=== PATIENT | female | born 1945 | race Caucasian/White ===

== ENCOUNTER 2023-04-19 14:08 | Emergency (ER) | payer MEDICARE, SELFPAY ==
[2023-04-19 14:28] VITALS: BP 177/76; PULSE 67; RESP 18; TEMP 36.3; O2SAT 98
--- NOTE | 2023-04-19 14:42 | ED.FEMALEGU ---
HPI - Female Genitourinary General Chief complaint: Urogenital-Female Stated complaint: uti symptoms Time Seen by Provider: 04/19/23 14:42 Source: patient Mode of arrival: ambulatory Limitations: no limitations History of Present Illness HPI Narrative: 77-year-old female presents with complaint of urinary frequency, urgency, low back aching for the past week. Afebrile. Is concerned that she has a urinary tract infection. States she has only had 1 UTI prior to this over a year ago. Patient is leaving for out of town and wants an antibiotic prior to going. Denies nausea vomiting diarrhea. No abdominal discomfort. All systems reviewed and negative except as noted above. Related Data Home Medications Medication Instructions Recorded Confirmed aspirin 81 mg capsule 81 mg PO DAILY 04/19/23 04/19/23 atenolol 50 mg tablet 50 mg PO DAILY 04/19/23 04/19/23 escitalopram oxalate 10 mg tablet 10 mg PO DAILY 04/19/23 04/19/23 lisinopril 40 mg tablet 40 mg PO DAILY 04/19/23 04/19/23 lovastatin 20 mg tablet 20 mg PO DAILY 04/19/23 04/19/23 trazodone 50 mg tablet 50 mg PO DAILY 04/19/23 04/19/23 Allergies Allergy/AdvReac Type Severity Reaction Status Date / Time No Known Allergies Allergy Verified 04/19/23 14:45 Review of Systems Review of Systems: CONSTITUTIONAL: Denies fever, chills, or sweats. EYES: Denies visual changes, redness, or discharge. ENT: Denies rhinorrhea, congestion, sore throat, or otalgia. CARDIOVASCULAR: Denies chest pain, palpitations, or edema. RESPIRATORY: Denies cough or dyspnea. GASTROINTESTINAL: Denies abdominal pain, nausea, vomiting, or diarrhea. GENITOURINARY: Denies dysuria . reports urinary frequency, urgency, low back pain. SKIN: Denies rash or itching. MUSCULOSKELETAL: Denies back pain, joint pain, or myalgia. NEUROLOGIC: Denies headache, numbness, or weakness. PSYCHIATRIC: Denies anxiety or depression. All other systems reviewed are negative, except as documented in HPI. PMFSH Comments At time of signature, agree with nursing past medical, surgical, social and family history. There is no relevant family history pertinent to the presenting complaint. Exam Narrative: GENERAL: This is a well-nourished, well-developed patient, in no apparent distress. HEAD: normocephalic, atraumatic. EYES: PERRL. Sclera clear/white. Vision is grossly intact. EARS: External ears normal NOSE: External nose normal NECK: Neck supple, non-tender without lymphadenopathy, masses or thyromegaly. CARDIOVASCULAR: Regular rate and rhythm without murmurs, gallops, or rubs. RESPIRATORY: Clear to auscultation. Breath sounds equal bilaterally. No wheezes, rales, or rhonchi. SKIN: warm, Dry, intact with no suspicious lesions or rash, good texture and turgor. NEURO: awake, alert, and oriented to person, place and time. There were no obvious focal neurologic abnormalities. EXTREMITIES: No joint tenderness, effusion, or edema noted. BACK: No CVA tenderness. Course Course Level of Care: Express Care Visit Vital Signs Vital signs: Vital Signs Temperature 36.3 C L 04/19/23 14:28 Pulse Rate 67 04/19/23 14:28 Respiratory Rate 18 04/19/23 14:28 Blood Pressure 177/76 H 04/19/23 14:28 Pulse Oximetry 98 04/19/23 14:28 Oxygen Delivery Room Air 04/19/23 14:28 Temperature 36.3 C L 04/19/23 14:28 Pulse Rate 67 04/19/23 14:28 Respiratory Rate 18 04/19/23 14:28 Blood Pressure 177/76 H 04/19/23 14:28 Pulse Oximetry 98 04/19/23 14:28 Oxygen Delivery Room Air 04/19/23 14:28 reviewed MDM - Female Genitourinary MDM Narrative Medical decision making narrative: Patient is aware of diagnosis, understands and agrees to treatment plan. Anticipatory guidance given. Patient agrees to follow-up as directed and is aware of reasons to seek care at the emergency department. Portions of this record may have been created with voice recognition software Differential Diagnosis D
== END 2023-04-19 14:56 | disposition home or self-care (01) ==
PROVIDERS: Emergency Provider Nurse Practitioner Family; PCP Internal Medicine
DX: N39.0 Urinary tract infection, site not specified (principal); E78.00 Pure hypercholesterolemia, unspecified; I10 Essential (primary) hypertension; F41.9 Anxiety disorder, unspecified
CPT/HCPCS: 81003; 87077; 87086; 87186; 99213; G0463

== ENCOUNTER 2023-06-14 09:36 | Emergency (ER) | payer MEDICARE, SELFPAY ==
[2023-06-14 09:53] VITALS: BP 122/66; PULSE 62; RESP 18; TEMP 36.4; O2SAT 97
--- NOTE | 2023-06-14 10:13 | ED.FEMALEGU ---
HPI - Female Genitourinary General Chief complaint: Urogenital-Female Stated complaint: uti symptoms Time Seen by Provider: 06/14/23 10:08 Source: patient and RN notes reviewed Mode of arrival: ambulatory Limitations: no limitations History of Present Illness HPI Narrative: Patient presents today complaining of a 2-3 week history of urinary frequency and fatigue. Denies any additional symptoms to include dysuria, hematuria, abdominal discomfort. She has tried no [id number] treatment prior to arrival. Related Data Home Medications Medication Instructions Recorded Confirmed aspirin 81 mg capsule 81 mg PO DAILY 04/19/23 06/14/23 atenolol 50 mg tablet 50 mg PO DAILY 04/19/23 06/14/23 escitalopram oxalate 10 mg tablet 10 mg PO DAILY 04/19/23 06/14/23 lisinopril 40 mg tablet 40 mg PO DAILY 04/19/23 06/14/23 lovastatin 20 mg tablet 20 mg PO DAILY 04/19/23 06/14/23 trazodone 50 mg tablet 50 mg PO DAILY 04/19/23 06/14/23 Allergies Allergy/AdvReac Type Severity Reaction Status Date / Time No Known Allergies Allergy Verified 06/14/23 09:59 Review of Systems Review of Systems: CONSTITUTIONAL: Denies body aches, fever, chills, or sweats.+ fatigue EYES: Denies visual changes, redness, or discharge. ENT: Denies rhinorrhea, congestion, sore throat, or otalgia. CARDIOVASCULAR: Denies chest pain, palpitations, or edema. RESPIRATORY: Denies cough or dyspnea. GASTROINTESTINAL: Denies abdominal pain, nausea, vomiting, or diarrhea. GENITOURINARY: Denies dysuria or hematuria.+ frequency SKIN: Denies rash, itching, or wounds. MUSCULOSKELETAL: Denies back pain, joint pain, or myalgia. NEUROLOGIC: Denies headache, numbness, tingling, or weakness. PSYCH: Denies depression or anxiety. [facility] Past Medical History Medical History (Updated 06/14/23 @ 10:16 by Sarah Larsen, [employer], ) Depression High cholesterol Hypertension Comments At time of signature, I have reviewed and agree with nursing past medical, surgical, social and family history unless otherwise noted. Please see nursing chart for further information. There is no relevant family history pertinent to the presenting complaint Exam Narrative: GENERAL: Well-appearing, well-nourished, and in no acute distress. HEAD: Normocephalic, atraumatic. EYES: EOMI. No redness or drainage. Conjunctivae normal. ENT: Mucous membranes pink and moist. NECK: Normal AROM. CHEST: No respiratory distress. EXTREMITIES: Normal range of motion. No edema. SKIN: Warm, dry, no rash. Capillary refill normal. NEURO: No focal deficits. Alert and oriented x3. Gait steady. PSYCH: Normal affect. No signs of depression or anxiety. Course Course Level of Care: Express Care Visit Vital Signs Vital signs: Vital Signs Temperature 97.5 F L 06/14/23 09:53 Pulse Rate 62 06/14/23 09:53 Respiratory Rate 18 06/14/23 09:53 Blood Pressure 122/66 06/14/23 09:53 Pulse Oximetry 97 06/14/23 09:53 Oxygen Delivery Room Air 06/14/23 09:53 Temperature 97.5 F L 06/14/23 09:53 Pulse Rate 62 06/14/23 09:53 Respiratory Rate 18 06/14/23 09:53 Blood Pressure 122/66 06/14/23 09:53 Pulse Oximetry 97 06/14/23 09:53 Oxygen Delivery Room Air 06/14/23 09:53 Reviewed. Pt has been instructed to follow up with her PCP regarding her elevated blood pressure today. MDM - Female Genitourinary MDM Narrative Medical decision making narrative: Urinalysis is not consistent with infection today. Discussed with patient about sending UA to lab for culture due to symptoms. Patient agrees with plan. No prescription medications indicated at this time. Anticipatory guidance given. Differential Diagnosis Differential diagnosis: Likely urinary tract infection, cystitis and other (Overactive bladder) Lab Data Attestation: I reviewed the patient's lab results. Labs: Urine Glucose Negative Reference Ran
== END 2023-06-14 10:15 | disposition home or self-care (01) ==
PROVIDERS: Emergency Provider Nurse Practitioner; PCP Internal Medicine
DX: R35.0 Frequency of micturition (principal); E78.00 Pure hypercholesterolemia, unspecified; I10 Essential (primary) hypertension; F32.A Depression, unspecified; Z79.82 Long term (current) use of aspirin
CPT/HCPCS: 81003; 87086; 87088; 99213; G0463

== ENCOUNTER 2024-02-06 10:14 | Emergency (ER) | payer MEDICARE, SELFPAY ==
[2024-02-06 10:17] VITALS: BP 200/71; PULSE 74; RESP 16; TEMP 36.5; O2SAT 100
--- NOTE | 2024-02-06 10:53 | ECG_ITS ---
SEE SCANNED COPY FOR CONFIRMED REPORT MTDD
--- NOTE | 2024-02-06 10:55 | ED.GENADULT ---
HPI - General Adult General Chief complaint: Recheck/Abnormal Lab/Rx Stated complaint: high blood pressure Time Seen by Provider: 02/06/24 10:22 History of Present Illness HPI narrative: 78-year-old female with history of hypertension presenting to the emergency department for evaluation of elevated blood pressure. Patient states a few weeks ago she was started on hydrochlorothiazide and that when she was taking medication her blood pressures ranged from 160s to 170s systolic. Patient had a recent vacation and stop taking the hydrochlorothiazide while she was on vacation due to concern elevated labs that she saw on her medical record. Patient returned from vacation on Sunday and did restart her hydrochlorothiazide. Patient does take atenolol and lisinopril at nighttime but did take her hydrochlorothiazide this morning. Prior to arrival patient states her blood pressure was 200 systolic. Patient denies any chest pain shortness of breath nausea vomiting headache lightheadedness numbness or weakness. Related Data Home Medications Medication Instructions Recorded Confirmed aspirin 81 mg capsule 81 mg PO DAILY 04/19/23 06/14/23 atenolol 50 mg tablet 50 mg PO DAILY 04/19/23 06/14/23 escitalopram oxalate 10 mg tablet 10 mg PO DAILY 04/19/23 06/14/23 lisinopril 40 mg tablet 40 mg PO DAILY 04/19/23 06/14/23 lovastatin 20 mg tablet 20 mg PO DAILY 04/19/23 06/14/23 trazodone 50 mg tablet 50 mg PO DAILY 04/19/23 06/14/23 hydrochlorothiazide 12.5 mg tablet mg 02/06/24 oxybutynin chloride 10 mg mg PO 02/06/24 tablet,extended release 24 hr Allergies Allergy/AdvReac Type Severity Reaction Status Date / Time No Known Allergies Allergy Verified 02/06/24 10:21 Review of Systems Review of Systems: All systems reviewed & are unremarkable except as noted in HPI and below PMFSH Past Medical History Medical History (Updated 02/06/24 @ 11:52 by Heraclio Yepez MD) Depression High cholesterol Hypertension Exam Narrative: APPEARANCE: Well appearing, no pain, no distress, well-nourished. HEAD: normocephalic, atraumatic. EYES: PERRLA/EOMI, conjunctivae clear. NOSE: Normal no drainage EARS:TMS clear with good light reflex. THROAT: Pharynx clear, no exudate. NECK: Supple. No adenopathy, no masses. RESPIRATORY: Airway patent, respirations nonlabored. Clear to auscultation bilaterally, no rales, rhonchi, wheezing. CARDIOVASCULAR: Regular rate and rhythm without murmurs rubs or gallops. ABDOMINAL: Soft, nontender, nondistended, normal bowel sounds MUSCULOSKELETAL: Moves all extremities. Strength/ROM intact, No edema, No calf tenderness. NEURO: Alert. Cranial nerves II through XII intact. Grossly intact SKIN: Warm, dry. Normal Color Course Course Emergency Course: Patient's blood pressure improved and patient was discharged to home Vital Signs Vital signs: Vital Signs Temperature 97.7 F 02/06/24 10:17 Pulse Rate 74 02/06/24 10:17 Respiratory Rate 16 02/06/24 10:17 Blood Pressure 200/71 H 02/06/24 10:17 Pulse Oximetry 100 02/06/24 10:17 Oxygen Delivery Room Air 02/06/24 10:17 Temperature 97.7 F 02/06/24 10:17 Pulse Rate 56 L 02/06/24 12:10 Respiratory Rate 18 02/06/24 12:10 Blood Pressure 149/77 H 02/06/24 12:10 Pulse Oximetry 100 02/06/24 12:10 Oxygen Delivery Room Air 02/06/24 10:17 Medical Decision Making MDM Narrative Medical decision making narrative: 78-year-old female presented to the ED for evaluation hypertension. Patient's blood pressure was running approximately 200 systolic at home. Upon arrival emergency department patient's blood pressure is improved and is at the 150-170 systolic blood pressure range. Patient states this is his closer to her baseline and patient is currently asymptomatic. Without any additional medications patient's blood pressures have been in the 140-150 systolic range. Patient was afebrile with no leukocytosis and a stable hemoglobin a
[2024-02-06 11:09] LABS: Basophils Percent Auto 0.4 % (0.2-1.2); Eosinophils Absolute Auto 0.2 K/mm3 (0-0.3); Eosinophils Percent Auto 2.4 % (0-4.4); Hematocrit 49.7 % (37.0-47.0); Hemoglobin 15.7 g/dL (12.0-15.0); Immature Granulocyte Absolute 0.01 K/mm3 (0.00-0.031); Immature Granulocyte Percent A 0.1 % (0-0.5); Lymphocytes Absolute Auto 3.05 K/mm3 (0.9-3.2); Lymphocytes Percent Auto 38.1 % (18.3-44.2); Mean Corpuscular HGB Conc 31.6 g/dl (32-36); Mean Corpuscular Hemoglobin 28.9 pg (26-34); Mean Corpuscular Volume 91.4 fl (80-100); Mean Platelet Volume 9.8 fl (7.4-10.4); Monocytes Absolute Auto 0.8 K/mm3 (0.1-0.6); Monocytes Percent Auto 10.2 % (2.6-8.5); Neutrophils Absolute Auto 3.9 K/mm3 (1.3-6.7); Neutrophils Percent Auto 48.8 % (45.5-73.1); Platelet Count Result 169 k/mm3 (150-375); Red Blood Count 5.44 M/mm3 (4.2-5.4)
[2024-02-06 11:20] LABS: Alanine Aminotransferase 25 U/L (6-35); Albumin Level 4.6 g/dL (3.5-5.1); Alkaline Phosphatase 70 U/L (38-126); Anion Gap 7 mmol/L (4-12); Aspartate Amino Transferase 25 U/L (14-36); Bilirubin,Total 0.8 mg/dL (0.2-1.3); Blood Urea Nitrogen 21 mg/dL (7-17); Calcium 9.6 mg/dL (8.4-10.2); Carbon Dioxide 28 mmol/L (22-30); Chloride 103 mmol/L (98-107); Estimated CRCL calculation 57 ml/min; Estimated Glomerular Filt Rate > 60; Glucose 123 mg/dL (65-110); Potassium 3.6 mmol/L (3.4-5.0); Sodium 138 mmol/L (137-145)
[2024-02-06 12:10] VITALS: BP 149/77; PULSE 56; RESP 18; O2SAT 100
== END 2024-02-06 12:11 | disposition home or self-care (01) ==
PROVIDERS: Emergency Provider Emergency Medicine; PCP Internal Medicine
DX: I10 Essential (primary) hypertension (principal); E78.00 Pure hypercholesterolemia, unspecified; F32.A Depression, unspecified; Z79.82 Long term (current) use of aspirin; R00.1 Bradycardia, unspecified; R94.31 Abnormal electrocardiogram [ECG] [EKG]
CPT/HCPCS: 36415; 80053; 85025; 93005; 99283